=== PATIENT | female | born 1960 | race American Indian/Alaskan Native ===

== ENCOUNTER 2016-09-01 16:35 | Inpatient (IN) | payer MEDICAID, OTHER ==
--- NOTE | 2016-09-01 16:59 | EDM.PDOC ---
ED HPI SEIZURE COMPLAINT - General Chief Complaint: Neurological Problem Stated Complaint: BY AMBULANCE Time Seen by Provider: 09/01/16 16:59 Source of Information: Reports: Patient, EMS notes reviewed, Family, RN notes reviewed History Limitations: Reports: No limitations - History of Present Illness INITIAL COMMENTS - FREE TEXT/NARRATIVE: Arrives by ambulance with complaint of slurred speech and bilateral lower extremity weakness. Symptoms began yesterday when patient realized that her legs "weren't working right". She then had several hours where her hands were weak also, but they are back to normal. Denies fall or injury. Denies seizures. Denies fever or chills. Symptom Onset Date: 08/31/16 Event Occurred (Where): home Location: Reports: other (lower extremity weakness.) Severity: moderate Pre Event Symptom(s): Reports: no other symptoms Event Symptoms: Reports: no other symptoms - Related Data Allergies/ADRs: Allergies Allergy/AdvReac Type Severity Reaction Status Date / Time codeine Allergy Nausea Verified 08/03/15 18:40 naproxen [From Naprosyn] Allergy Hives Verified 08/03/15 18:40 Home Meds: Home Meds Phenytoin Sodium Extended [Dilantin] 600 mg PO DAILY 04/30/13 [History] ALPRAZolam [Xanax] 2 mg PO TID 05/22/13 [History] QUEtiapine [SEROquel] 400 mg PO BEDTIME 05/22/13 [History] Sertraline [Zoloft] 200 mg PO BEDTIME 05/22/13 [History] Formoterol/Mometasone [Dulera 100-50 MCG] 2 puff IH BID 06/14/13 [History] Gabapentin [Neurontin] 300 mg PO TID 06/14/13 [History] Zolpidem [Ambien] 5 mg PO BEDTIME PRN 06/14/13 [History] risperiDONE [Risperidone] 1 mg PO BEDTIME 06/14/13 [History] Albuterol [Ventolin HFA] 2 puff INH Q4H 09/16/13 [History] Past Medical History HEENT History: Reports: None Respiratory History: Reports: COPD - Past Surgical History Musculoskeletal Surgical History: Reports: Other (see below) Other Musculoskeletal Surgeries/Procedures:: right arm fracture Social & Family History - Family History Family Medical History: Noncontributory - Tobacco Use Smoking Status *Q: Never Smoker Years of Tobacco use: 1 Used Tobacco, but Quit: No Second Hand Smoke Exposure: Yes - Alcohol Use Days Per Week of Alcohol Use: 0 - Recreational Drug Use Recreational Drug Use: No Drug Use in Last 12 Months: Yes Recreational Drug Type: Reports: Marijuana/Hashish Recreational Drug Use Frequency: Rarely - Living Situation & Occupation Living situation: Reports: other (in [facility] house for giving vicodin to other) ED ROS GENERAL - Review of Systems Review Of Systems: ROS reveals no pertinent complaints other than HPI. - Physical Exam Exam: See Below Exam Limited By: No limitations General Appearance: alert, WD/WN, no apparent distress Eye Exam: bilateral eye: normal inspection Ears: normal external exam, normal canal, hearing grossly normal, normal TMs Nose: normal inspection, normal mucosa, no blood Throat/Mouth: Normal inspection, Normal lips, Normal teeth, Normal gums, Normal oropharynx, Normal voice, No airway compromise Head Exam: atraumatic, normocephalic Neck: supple, non-tender, full range of motion, lymphadenopathy (R) (upper lateral). No: carotid bruit, lymphadenopathy (L) Respiratory/Chest: no respiratory distress, lungs clear, normal breath sounds, no accessory muscle use, chest non-tender Cardiovascular: normal peripheral pulses, regular rate, rhythm, no edema, no gallop, no JVD, no murmur, no rub GI/Abdominal: normal bowel sounds, soft, non tender, no organomegaly, no distention, no abnormal bruit, no mass Neuro Exam (Abbreviated): alert, oriented, sensory/motor deficit (no sensory deficit. Bilateral lower extremity motor weakness. ), other (Cranial nerves II- XII intact, slightly slurred speech. ) Back Exam: normal inspection, full range of motion, NT Extremities: normal inspection, normal range of motion, non-tender, no pedal edema, normal capillary refill Psychiatric: normal affect, normal mood, other (denies suicidal thoughts or intent.) Skin Exam: Warm, Dry, Intact, Normal color, No rash Course - Vital Signs Last Recorded V/S: Last Vital Signs Temp 36.6 C 09/01/16 16:57 Pulse 72 09/01/16 16:57 Resp 16 09/01/16 16:57 BP 122/73 09/01/16 16:57 Pulse Ox 98 09/01/16 16:57 - Orders/Labs/Meds Orders: Active Orders 24 hr Category Date Time Status Peripheral IV Care [RC] . DIRECTED Care 09/01/16 17:11 Active DRUG SCREEN URINE BIORAD [URCHEM] Stat Lab 09/01/16 17:10 Uncollected UA W/MICROSCOPIC [URIN] Stat Lab 09/01/16 17:10 Uncollected Sodium Chloride 0.9% [Normal Saline] 1,000 ml Med 09/01/16 17:46 Active IV .BOLUS Sodium Chloride 0.9% [Saline Flush] Med 09/01/16 17:10 Active 10 ml FLUSH ASDIRECTED PRN Peripheral IV Insertion Adult [OM.PC] Stat Oth 09/01/16 17:10 Ordered Medication Orders Sodium Chloride (Normal Saline) 1,000 mls @ 999 mls/hr IV .BOLUS ONE Stop: 09/01/16 18:46 Sodium Chloride (Saline Flush) 10 ml FLUSH ASDIRECTED PRN PRN Reason: Keep Vein Open Labs: Laboratory Tests 09/01/16 09/01/16 Range/Units 17:30 17:30 WBC 6.4 (5.0-10.0) 10^3/uL RBC 3.71 L (4.2-5.4) 10^6/uL Hgb 11.8 L (12.0-16.0) g/dL Hct 35.0 L (37.0-47.0) % MCV 94.3 (80-100) fL MCH 31.8 (27.0-34.0) pg MCHC 33.7 (33.0-35.0) g/dL Plt Count 251 (150-450) 10^3/uL Neut % (Auto) 60.1 (42.2-75.2) % Lymph % (Auto) 29.4 (20.5-50.1) % [place] % (Auto) 8.3 H (2-8) % Eos % (Auto) 1.7 (1.0-3.0) % Baso % (Auto) 0.5 (0.0-1.0) % Sodium 137 (135-145) mmol/L Potassium 3.7 (3.6-5.0) mmol/L Chloride 105 (101-111) mmol/L Carbon Dioxide 23.0 (21.0-31.0) mmol/L Anion Gap 12.7 BUN 6 L (7-18) mg/dL Creatinine 0.7 (0.6-1.3) mg/dL Est Cr Clr Drug Dosing 92.68 mL/min Estimated GFR (MDRD) > 60 BUN/Creatinine Ratio 8.57 Glucose 118 H (74-105) mg/dL Calcium 8.5 (8.4-10.2) mg/dl Total Bilirubin 0.2 (0.2-1.0) mg/dL AST 37 (10-42) IU/L ALT 27 (10-60) IU/L Alkaline Phosphatase 134 H (42-121) IU/L Lactate Dehydrogenase 199 H (91-180) IU/L Creatine Kinase 505 H (26-174) IU/L Total Protein 6.6 L (6.7-8.2) g/dl Albumin 3.6 (3.2-5.5) g/dl Globulin 3.0 Albumin/Globulin Ratio 1.20 Phenytoin 32.5 H* (10-20) ug/dL Ethyl Alcohol < 5 mg/dL Meds: Medications Generic Name Dose Route Start Last Admin Trade Name Freq PRN Reason Stop Dose Admin Sodium Chloride 1,000 mls @ 999 mls/hr 09/01/16 17:46 Normal Saline IV 09/01/16 18:46 .BOLUS ONE Sodium Chloride 10 ml 09/01/16 17:10 Saline Flush FLUSH ASDIRECTED PRN Keep Vein Open Discontinued Medications Generic Name Dose Route Start Last Admin Trade Name Freq PRN Reason Stop Dose Admin Hydrocodone Bitart/Acetaminophen 1 tab 09/01/16 18:04 [place] 325-10 Mg PO 09/01/16 18:05 ONETIME ONE - Radiology Interpretation Free Text/Narrative:: Head CT: Per rad report shows no acute intracranial hemorrhage. Departure - Departure Time of Disposition: 18:26 (Dr. Solis) Disposition: DC/Tfer to Acute Hospital 02 Condition: fair Clinical Impression: Dilantin toxicity Qualifiers: Encounter type: initial encounter Injury intent: accidental or unintentional Qualified Code(s): T42.0X1A - Poisoning by hydantoin derivatives, accidental ( unintentional), initial encounter Forms: ED Department Discharge - My Orders Last 24 Hours: My Active Orders 09/01/16 17:10 DRUG SCREEN URINE BIORAD [URCHEM] Stat UA W/MICROSCOPIC [URIN] Stat Sodium Chloride 0.9% [Saline Flush] 10 ml FLUSH ASDIRECTED PRN Peripheral IV Insertion Adult [OM.PC] Stat 09/01/16 17:11 Peripheral IV Care [RC] . DIRECTED 09/01/16 17:46 Sodium Chloride 0.9% [Normal Saline] 1,000 ml IV .BOLUS - Assessment/Plan Last 24 Hours: My Active Orders 09/01/16 17:10 DRUG SCREEN URINE BIORAD [URCHEM] Stat UA W/MICROSCOPIC [URIN] Stat Sodium Chloride 0.9% [Saline Flush] 10 ml FLUSH ASDIRECTED PRN Peripheral IV Insertion Adult [OM.PC] Stat 09/01/16 17:11 Peripheral IV Care [RC] . DIRECTED 09/01/16 17:46 Sodium Chloride 0.9% [Normal Saline] 1,000 ml IV .BOLUS
[2016-09-01] MEDS ORDERED: Sodium Chloride 0.9% 10 ML Syringe FLUSH PRN (17:10)
[2016-09-01] MEDS ORDERED: Sodium Chloride 0.9% 1,000 ML IV ONE (17:46)
[2016-09-01] MEDS ORDERED: Acetaminophen/HYDROcodone 325-10 MG Tab PO ONE (18:04)
[2016-09-01 18:13] LABS: CHLORIDE,CL 105 mmol/L (101-111); SODIUM,NA 137 mmol/L (135-145)
--- NOTE | 2016-09-01 19:07 | PCM.HP ---
H&P History of Present Illness - General Date of Service: 09/01/16 Admit Problem/Dx: unsteadiness with elevated level of Dilantin ( 32.5) and Nausea Source of Information: Patient, Old records History Limitations: Reports: No limitations - History of Present Illness Initial Comments - Free Text/Narative: The patient is a 56-year-old female with history of COPD,History of seizures and she is on Dilantin. Arrives vis ambulance with complaint of slurred speech and bilateral lower extremity weakness. Symptoms began yesterday when patient realized that her legs "weren't working right". She then had several hours where her hands were weak also, but they are back to normal. Denies fall or injury. Denies seizures. Denies fever or chills. But she is unsteady and had Head CT in Ed today and no acute Intracranial Hemorrhage,. but her Dilantin level was elevated it was at 32.5, she did not receive activated charcoal in ER , because not sure when the last dose was taken. Onset of Symptoms: Reports: today Location: Reports: other (weakness in B/L Upper Extremity and B/L lower extremity) Associated Symptoms: Reports: other (Nusea and unsteadiness). Denies: chest pain, cough w sputum, shortness of breath Headache Pain Score (Numeric/FACES): 9 - Related Data Allergies/Adverse Reactions: Allergies Allergy/AdvReac Type Severity Reaction Status Date / Time codeine Allergy Nausea Verified 08/03/15 18:40 naproxen [From Naprosyn] Allergy Hives Verified 08/03/15 18:40 Home Medications: Home Meds Phenytoin Sodium Extended [Dilantin] 600 mg PO DAILY 04/30/13 [History] ALPRAZolam [Xanax] 2 mg PO TID 05/22/13 [History] QUEtiapine [SEROquel] 600 mg PO BEDTIME 05/22/13 [History] Sertraline [Zoloft] 200 mg PO DAILY 05/22/13 [History] Formoterol/Mometasone [Dulera 100-50 MCG] 2 puff IH BID 06/14/13 [History] Gabapentin [Neurontin] 600 mg PO TID 06/14/13 [History] Zolpidem [Ambien] 10 mg PO BEDTIME PRN 06/14/13 [History] risperiDONE [Risperidone] 1.5 mg PO BEDTIME 06/14/13 [History] Albuterol [Ventolin HFA] 2 puff INH Q4H PRN 09/16/13 [History] Ibuprofen 800 mg PO Q8H PRN 09/01/16 [History] Montelukast [Singulair] 4 mg PO DAILY 09/01/16 [History] Past Medical History HEENT History: Reports: None Respiratory History: Reports: COPD Neurological History: Reports: Seizure Psychiatric History: Reports: Anxiety, Depression - Past Surgical History Musculoskeletal Surgical History: Reports: Other (see below) Other Musculoskeletal Surgeries/Procedures:: right arm fracture Social & Family History - Family History Family Medical History: Noncontributory - Tobacco Use Smoking Status *Q: Never Smoker Years of Tobacco use: 1 Packs/Tins Daily: 0.1 Used Tobacco, but Quit: No Second Hand Smoke Exposure: Yes - Caffeine Use Caffeine Use: Reports: Coffee, Energy drinks, Soda, Tea - Alcohol Use Days Per Week of Alcohol Use: 0 - Recreational Drug Use Recreational Drug Use: No Drug Use in Last 12 Months: Yes Recreational Drug Type: Reports: Marijuana/Hashish Recreational Drug Use Frequency: Rarely - Living Situation & Occupation Living situation: Reports: other (in [facility] house for giving vicodin to other) H&P Review of Systems - Review of Systems: Review Of Systems: See Below General: Reports: weakness. Denies: fever, chills HEENT: Denies: headaches, sinus congestion, sore throat, vertigo Pulmonary: Denies: Shortness of Breath, Wheezing, Cough, Sputum Cardiovascular: Denies: chest pain, lightheadedness, claudication Gastrointestinal: Reports: Nausea. Denies: Abdominal pain, Anorexia, Difficulty swallowing, Distension, Flatus, Vomiting Genitourinary: Denies: dysuria, frequency, burning, urgency Skin: Denies: cyanosis, diaphoresis, bruising, pruritis, rash Psychiatric: Denies: confusion, anxiety Neurological: Reports: Numbness, Difficulty Walking, Gait Disturbance Hematologic/Lymphatic: Reports: no symptoms Immunologic: Reports: no symptoms Exam - Exam Exam: See Below - Vital Signs Vital Signs: Last Vital Signs Temp 36.6 C 09/01/16 16:57 Pulse 72 09/01/16 16:57 Resp 16 09/01/16 16:57 BP 122/73 09/01/16 16:57 Pulse Ox 98 09/01/16 16:57 Weight: 92.986 kg - Exam Quality Assessment: DVT prophylaxis. No: supplemental oxygen, urinary catheter General: alert, oriented, cooperative HEENT: Conjunctiva clear, Hearing intact, Pupils equal Neck: supple. No: lymphadenopathy, JVD Lungs: Clear to auscultation, Normal respiratory effort. No: Crackles, Wheezing Cardiovascular: regular rate, regular rhythm, normal S1, normal S2 Abdomen: normal bowel sounds, soft. No: guarding, rigidity, rebound (Female) Exam: Deferred Rectal (Female) Exam: Deferred Back Exam: normal inspection, full range of motion Extremities: normal inspection. No: calf tenderness, edema Skin: warm, dry, intact Neurological: cranial nerves intact Neuro Extensive - Mental Status: alert, oriented x3, normal mood/affect, normal cognition, memory intact Neuro Extensive - Motor, Sensory, Reflexes: CN II-XII intact, abnormal gait - Patient Data Result Diagrams: 09/01/16 17:30 09/01/16 17:30 *Q Meaningful Use (ADM) - VTE *Q VTE Criteria *Q: - Stroke *Q Stroke Criteria *Q: - AMI *Q AMI Criteria *Q: - Problem List (1) Nausea SNOMED Code(s): 762348923 ICD Code: R11.0 - NAUSEA Status: Acute Current Visit: Yes (2) Unsteadiness on feet SNOMED Code(s): 982962092 ICD Code: R26.81 - UNSTEADINESS ON FEET Status: Acute Current Visit: Yes (3) Dilantin toxicity SNOMED Code(s): 46298070 ICD Code: T42.0X1A - POISONING BY HYDANTOIN DERIVATIVES, ACCIDENTAL, INIT Status: Acute Current Visit: Yes Qualifiers: Encounter type: initial encounter Injury intent: accidental or unintentional Qualified Code(s): T42.0X1A - Poisoning by hydantoin derivatives , accidental (unintentional), initial encounter (4) Seizure disorder SNOMED Code(s): 506361736 ICD Code: G40.909 - EPILEPSY, UNSP, NOT INTRACTABLE, WITHOUT STATUS EPILEPTICUS Status: Chronic Current Visit: No Problem List Initiated/Reviewed/Updated: Yes Orders Last 24hrs: Medication Orders Sodium Chloride (Saline Flush) 10 ml FLUSH ASDIRECTED PRN PRN Reason: Keep Vein Open Last Admin: 09/01/16 18:47 Dose: 10 ml Assessment/Plan Comment:: Pt was admitted after she Arrived by ambulance with complaint of slurred speech and bilateral lower extremity weakness. Symptoms began yesterday when patient realized that her legs "weren't working right". She then had several hours where her hands were weak also, but they are back to normal. Denies fall or injury. Denies seizures. Denies fever or chills. In ED her Dilantin level was checked and it was elevated 32.5 ug/dl ( ref-03-15) 1. Dilantin Toxicity: The pt has history of Seizere Disorder and on Dilantin -She presented with slurred speech and B/L LE weakness -She did not receive any activated charcoalin ED and I talk to ED attending said it was too late, but I feel she should have atleast a dose in ED -Will continue IV fluids NS at 200 ml/Hr -Will check Dilantin level q2hrs and if the level keeps increasing then she may need dialysis and in that case may need a transfer to [facility] for D[facility] -Will hold her dilantin in hospital 2. Nausea : This is also likely from Dilantin toxicity -Will gine IV reglan and Zofran IV as needed 3. Unsteadiness and weakness: This is also related to Dialntin toxicity -Will continue IV fluids and check Dilantin level serially Q2-4 hrs, depending the repeat level 4. History of Seizure Disorder: She was on Dilantin and will hold in hospital and start once the level Normalizes 5. GI prophylaxis: Start Protonix 40 mg PO daily 6. DVT prophylaxis: Start Levonex 7. Code Status: Full Code
[2016-09-01] MEDS ORDERED: Docusate Sodium 100 MG Cap PO PRN (19:36)
[2016-09-01] MEDS: Ondansetron 4 MG/2 ML SDV IV PRN (20:00)
[2016-09-01] MEDS ORDERED: Albuterol 6.7 GM Inhaler INH PRN (20:00)
[2016-09-01] MEDS ORDERED: Sertraline 50 MG Tab PO SCH (21:00)
[2016-09-01] MEDS: Acetaminophen 325 MG Tab PO PRN (21:43)
[2016-09-01] MEDS: Formoterol/Mometasone 100-5 MCG 8.8 GM Inhaler IH SCH (21:43)
[2016-09-01] MEDS: ALPRAZolam 0.5 MG Tab PO SCH (21:46)
[2016-09-01] MEDS: risperiDONE 1 MG Tab PO SCH (21:46)
[2016-09-01] MEDS: QUEtiapine 100 MG Tab PO SCH (21:47)
[2016-09-01] MEDS: Metoclopramide 10 MG/2 ML SDV IVPUSH PRN (21:55)
[2016-09-01] MEDS: Gabapentin 300 MG Cap PO SCH (22:19)
[2016-09-01] MEDS: Zolpidem 5 MG Tab PO PRN (22:19)
[2016-09-01] MEDS: Benzocaine/Cetylpyridinium/Menthol Lozenge MUCMEM PRN (23:54)
[2016-09-02] MEDS ORDERED: Acetaminophen/oxyCODONE 325-5 MG Tab PO ONE
[2016-09-02] MEDS ORDERED: Ibuprofen 400 MG Tab PO ONE (00:10)
[2016-09-02] MEDS: Sodium Chloride 0.9% 1,000 ML IV SCH ×4 (00:14→18:40)
[2016-09-02] MEDS: Benzocaine/Cetylpyridinium/Menthol Lozenge MUCMEM PRN ×2 (03:13→10:27)
[2016-09-02] MEDS: Acetaminophen 325 MG Tab PO PRN ×3 (03:14→20:22)
[2016-09-02] MEDS: Pantoprazole 40 MG Tab.CR PO SCH (06:01)
[2016-09-02] MEDS: Ondansetron 4 MG/2 ML SDV IV PRN ×2 (06:03→17:31)
[2016-09-02 07:37] LABS: CHLORIDE,CL 109 mmol/L (101-111); SODIUM,NA 139 mmol/L (135-145)
[2016-09-02] MEDS ORDERED: Calcium Gluconate 10% 1 GM/10 ML SDV IVPUSH ONE (07:55)
[2016-09-02] MEDS: Metoclopramide 10 MG/2 ML SDV IVPUSH PRN ×3 (08:51→20:46)
[2016-09-02] MEDS: Formoterol/Mometasone 100-5 MCG 8.8 GM Inhaler IH SCH ×2 (10:27→20:52)
[2016-09-02] MEDS: Gabapentin 300 MG Cap PO SCH ×3 (10:28→20:51)
[2016-09-02] MEDS: Sertraline 50 MG Tab PO SCH (10:29)
[2016-09-02] MEDS: ALPRAZolam 0.5 MG Tab PO SCH ×3 (10:29→20:52)
[2016-09-02] MEDS: Enoxaparin 40 MG/0.4 ML Syringe SUBCUT SCH (10:30)
[2016-09-02] MEDS ORDERED: Albuterol/Ipratropium 3.0-0.5 MG/3 ML Neb Soln NEB PRN (10:32)
[2016-09-02] MEDS ORDERED: Furosemide 20 MG/2 ML VIAL IVPUSH ONE ×2 (10:33→16:04)
--- NOTE | 2016-09-02 11:17 | PCM.PN ---
- General Info Date of Service: 09/02/16 Admission Dx/Problem (Free Text): Pt was admitted with : unsteadiness with elevated level of Dilantin ( 32.5), B/ L Leg weakness and Nausea Functional Status: Reports: pain controlled, tolerating diet, urinating - Review of Systems General: Reports: Weakness, Appetite (good). Denies: Chills HEENT: Reports: headaches. Denies: ear pain, eye pain, sinus congestion, sore throat Pulmonary: Reports: cough, wheezing. Denies: sputum Cardiovascular: Denies: Chest Pain, Dyspnea on Exertion, Lightheadedness Gastrointestinal: Reports: Nausea, Vomiting. Denies: Abdominal pain, Diarrhea Genitourinary: Denies: dysuria, frequency, burning, pain, urgency Musculoskeletal: Denies: shoulder pain, hand pain, back pain, foot pain Skin: Denies: jaundice, diaphoresis, bruising, pruritis, rash Neurological: Reports: Numbness, Difficulty Walking, Weakness Psychiatric: Denies: confusion, anxiety - Patient Data Vitals - most recent: Last Vital Signs Temp 36.3 C 09/02/16 07:00 Pulse 71 09/02/16 07:00 Resp 20 09/02/16 07:00 BP 92/54 L 09/02/16 07:00 Pulse Ox 94 L 09/02/16 07:00 Weight - most recent: 92.986 kg I&O - last 24 hours: Intake & Output 09/01/16 09/02/16 09/02/16 22:59 06:59 14:59 Intake Total 2000 Output Total 600 Balance 2000 -600 Lab Results last 24 hrs: Laboratory Results - last 24 hr 09/01/16 09/02/16 09/02/16 Range/Units 23:00 03:00 06:20 Sodium (135-145) mmol/L Potassium (3.6-5.0) mmol/L Chloride (101-111) mmol/L Carbon Dioxide (21.0-31.0) mmol/L Anion Gap BUN (7-18) mg/dL Creatinine (0.6-1.3) mg/dL Est Cr Clr Drug Dosing mL/min Estimated GFR (MDRD) Glucose (74-105) mg/dL Calcium (8.4-10.2) mg/dl Urine Color (YELLOW) Urine Appearance (CLEAR) Urine pH (5.0-9.0) Ur Specific [place] (1.005-1.030) Urine Protein (NEGATIVE) Urine Glucose (UA) (NEGATIVE) Urine Ketones (NEGATIVE) Urine Occult Blood (NEGATIVE) Urine Nitrite (NEGATIVE) Urine Bilirubin (NEGATIVE) Urine Urobilinogen (0.2-1.0) mg/dL Ur Leukocyte Esterase (NEGATIVE) Urine RBC /HPF Urine WBC (0-5/HPF) /HPF Ur Epithelial Cells /HPF Urine Bacteria (0-FEW/HPF) /HPF Urine Mucus /LPF Urine Opiates Screen Negative (NEGATIVE) Ur Oxycodone Screen Negative (NEGATIVE) Urine Methadone Screen Negative (NEGATIVE) Ur Barbiturates Screen Positive H (NEGATIVE) Phenytoin 28.7 H* 28.8 H* (10-20) ug/dL U Tricyclic Antidepress Negative (NEGATIVE) Ur Phencyclidine Scrn Negative (NEGATIVE) Ur Amphetamine Screen Negative (NEGATIVE) U Methamphetamines Scrn Negative (NEGATIVE) Urine MDMA Screen Negative (NEGATIVE) U Benzodiazepines Scrn Positive H (NEGATIVE) Urine Cocaine Screen Negative (NEGATIVE) U Marijuana (THC) Screen Negative (NEGATIVE) 09/02/16 09/02/16 09/02/16 Range/Units 06:20 07:05 07:05 Sodium 139 (135-145) mmol/L Potassium 3.7 (3.6-5.0) mmol/L Chloride 109 (101-111) mmol/L Carbon Dioxide 24.0 (21.0-31.0) mmol/L Anion Gap 9.7 BUN 8 (7-18) mg/dL Creatinine 0.7 (0.6-1.3) mg/dL Est Cr Clr Drug Dosing 92.68 mL/min Estimated GFR (MDRD) > 60 Glucose 92 (74-105) mg/dL Calcium 7.5 L (8.4-10.2) mg/dl Urine Color Yellow (YELLOW) Urine Appearance Slightly cloudy (CLEAR) Urine pH 7.0 (5.0-9.0) Ur Specific [place] 1.020 (1.005-1.030) Urine Protein Negative (NEGATIVE) Urine Glucose (UA) Negative (NEGATIVE) Urine Ketones Negative (NEGATIVE) Urine Occult Blood Negative (NEGATIVE) Urine Nitrite Negative (NEGATIVE) Urine Bilirubin Negative (NEGATIVE) Urine Urobilinogen 0.2 (0.2-1.0) mg/dL Ur Leukocyte Esterase Negative (NEGATIVE) Urine RBC 0-5 /HPF Urine WBC 0-5 (0-5/HPF) /HPF Ur Epithelial Cells Moderate H /HPF Urine Bacteria Few (0-FEW/HPF) /HPF Urine Mucus Few H /LPF Urine Opiates Screen (NEGATIVE) Ur Oxycodone Screen (NEGATIVE) Urine Methadone Screen (NEGATIVE) Ur Barbiturates Screen (NEGATIVE) Phenytoin 25.5 H* (10-20) ug/dL U Tricyclic Antidepress (NEGATIVE) Ur Phencyclidine Scrn (NEGATIVE) Ur Amphetamine Screen (NEGATIVE) U Methamphetamines Scrn (NEGATIVE) Urine MDMA Screen (NEGATIVE) U Benzodiazepines Scrn (NEGATIVE) Urine Cocaine Screen (NEGATIVE) U Marijuana (THC) Screen (NEGATIVE) Med Orders - Current: Current Medications Acetaminophen (Tylenol) 650 mg PO Q4H PRN PRN Reason: Pain (mild 1-3 )/fever Last Admin: 09/02/16 10:26 Dose: 650 mg Albuterol (Proventil Hfa) 0 gm INH Q4H PRN PRN Reason: WHEEZING / SOB Albuterol/Ipratropium (Duoneb 3.0-0.5 Mg/3 Ml) 3 ml NEB Q4HRRT PRN PRN Reason: Wheezing Alprazolam (Xanax) 2 mg PO TID [facility] Last Admin: 09/02/16 10:29 Dose: 2 mg Benzocaine/Menthol (Cepacol Sore Throat) 1 lozenge MUCMEM Q3H PRN PRN Reason: Cough Last Admin: 09/02/16 10:27 Dose: 1 lozenge Docusate Sodium (Colace) 100 mg PO DAILY PRN PRN Reason: Constipation Enoxaparin Sodium (Lovenox) 40 mg SUBCUT DAILY [facility] Last Admin: 09/02/16 10:30 Dose: 40 mg Gabapentin (Neurontin) 600 mg PO TID [facility] Last Admin: 09/02/16 10:28 Dose: 600 mg Sodium Chloride (Normal Saline) 1,000 mls @ 200 mls/hr IV ASDIRECTED [facility] Last Admin: 09/02/16 05:29 Dose: 200 mls/hr Metoclopramide HCl (Reglan) 5 mg IVPUSH Q6H PRN PRN Reason: Nausea Last Admin: 09/02/16 08:51 Dose: 5 mg Mometasone Furoate/Formoterol Fumar (Dulera 100-5 Mcg) 2 puff IH BID [facility] Last Admin: 09/02/16 10:27 Dose: 2 puff Montelukast [ (Singulair] 4mg) 4 mg PO DAILY [facility] Ondansetron HCl (Zofran) 4 mg IV Q4H PRN PRN Reason: Nausea/Vomiting Last Admin: 09/02/16 06:03 Dose: 4 mg Pantoprazole Sodium (Protonix) 40 mg PO ACBREAKFAST [facility] Last Admin: 09/02/16 06:01 Dose: 40 mg Quetiapine Fumarate (Seroquel) 400 mg PO BEDTIME [facility] Last Admin: 09/01/16 21:47 Dose: Not Given Risperidone (Risperidal) 1 mg PO BEDTIME [facility] Last Admin: 09/01/16 21:46 Dose: 1 mg Sertraline HCl (Zoloft) 200 mg PO DAILY [facility] Last Admin: 09/02/16 10:29 Dose: 200 mg Sodium Chloride (Saline Flush) 10 ml FLUSH ASDIRECTED PRN PRN Reason: Keep Vein Open Last Admin: 09/01/16 18:47 Dose: 10 ml Zolpidem Tartrate (Ambien) 10 mg PO BEDTIME PRN PRN Reason: Insomnia Last Admin: 09/01/16 22:19 Dose: 10 mg Discontinued Medications Hydrocodone Bitart/Acetaminophen ([place] 325-10 Mg) 1 tab PO ONETIME ONE Stop: 09/01/16 18:05 Last Admin: 09/01/16 18:46 Dose: 1 tab Calcium Gluconate (Calcium Gluconate) 1 gm IVPUSH ONETIME ONE Stop: 09/02/16 07:56 Last Admin: 09/02/16 08:51 Dose: 1 gm Furosemide (Lasix) 20 mg IVPUSH ONETIME ONE Stop: 09/02/16 10:34 Sodium Chloride (Normal Saline) 1,000 mls @ 999 mls/hr IV .BOLUS ONE Stop: 09/01/16 18:46 Last Infusion: 09/02/16 00:14 Dose: Infused Ibuprofen (Motrin) 400 mg PO ONETIME ONE Stop: 09/02/16 00:11 Last Admin: 09/02/16 00:10 Dose: 400 mg Oxycodone/Acetaminophen (Percocet 325-5 Mg) 1 tab PO ONETIME ONE Stop: 09/02/16 00:01 Last Admin: 09/02/16 01:20 Dose: Not Given Sertraline HCl (Zoloft) 200 mg PO BEDTIME [facility] Last Admin: 09/01/16 21:47 Dose: Not Given - Exam Quality Assessment: DVT prophylaxis. No: supplemental oxygen, urine catheter General: alert, oriented, cooperative, no acute distress HEENT: Pupils equal, Mucous membr. moist/pink Neck: supple, no thyromegaly. No: lymphadenopathy Lungs: Clear to auscultation, Normal respiratory effort, Wheezing. No: Crackles Cardiovascular: Regular Rate, Regular Rhythm, Murmurs Abdomen: bowel sounds present, soft, no tenderness, no distension (Female) Exam: Deferred Back Exam: normal inspection, full range of motion Extremities: no edema, no clubbing, no calf tenderness Skin: warm, dry, intact Neurological: no new focal deficit Psy/Mental Status: alert, normal affect, normal mood - Problem List & Annotations (1) Nausea SNOMED Code(s): 331750078 Code(s): R11.0 - NAUSEA Status: Acute Current Visit: Yes (2) Unsteadiness on feet SNOMED Code(s): 509294105 Code(s): R26.81 - UNSTEADINESS ON FEET Status: Acute Current Visit: Yes (3) Dilantin toxicity SNOMED Code(s): 20252021 Code(s): T42.0X1A - POISONING BY HYDANTOIN DERIVATIVES, ACCIDENTAL, INIT Status: Acute Current Visit: Yes Qualifiers: Encounter type: initial encounter Injury intent: accidental or unintentional Qualified Code(s): T42.0X1A - Poisoning by hydantoin derivatives , accidental (unintentional), initial encounter (4) Seizure disorder SNOMED Code(s): 671867559 Code(s): G40.909 - EPILEPSY, UNSP, NOT INTRACTABLE, WITHOUT STATUS EPILEPTICUS Status: Chronic Current Visit: No - Problem List Review Problem List Initiated/Reviewed/Updated: Yes - My Orders Last 24 Hours: My Active Orders 09/01/16 19:42 Metoclopramide [Reglan] 5 mg IVPUSH Q6H PRN 09/01/16 19:43 Ondansetron [Zofran] 4 mg IV Q4H PRN 09/01/16 19:45 Sodium Chloride 0.9% [Normal Saline] 1,000 ml IV ASDIRECTED 09/01/16 19:47 Zolpidem [Ambien] 10 mg PO BEDTIME PRN 09/01/16 20:00 Albuterol [Proventil HFA] 0 gm INH Q4H PRN 09/01/16 21:00 ALPRAZolam [Xanax] 2 mg PO TID Gabapentin [Neurontin] 600 mg PO TID Mometasone/Formoterol [Dulera 100-5 MCG] 2 puff IH BID QUEtiapine [SEROquel] 400 mg PO BEDTIME risperiDONE [RisperiDAL] 1 mg PO BEDTIME 09/01/16 23:48 Benzocaine/Cetylpyrd/Menthol [Cepacol Sore Throat] 1 lozenge MUCMEM Q3H PRN 09/02/16 06:00 Pantoprazole [ProTONIX] 40 mg PO ACBREAKFAST 09/02/16 09:00 Montelukast [Singulair] 4 mg PO DAILY Sertraline [Zoloft] 200 mg PO DAILY 09/02/16 10:30 PT Evaluation and Treatment [CONS] Routine 09/02/16 10:32 RT Aerosol Therapy [RC] ASDIRECTED Albuterol/Ipratropium [DuoNeb 3.0-0.5 MG/3 ML] 3 ml NEB Q4HRRT PRN 09/02/16 10:55 DILANTIN,PHENYTOIN [CHEM] Q4H 09/02/16 15:00 DILANTIN,PHENYTOIN [CHEM] Q4H - Plan Plan:: Pt was admitted after she Arrived by ambulance with complaint of slurred speech and bilateral lower extremity weakness. Symptoms began yesterday when patient realized that her legs "weren't working right". She then had several hours where her hands were weak also, but they are back to normal. Denies fall or injury. Denies seizures. Denies fever or chills. In ED her Dilantin level was checked and it was elevated 32.5 ug/dl ( ref-10-20) 1. Dilantin Toxicity: The pt has history of Seizere Disorder and on Dilantin -She presented with slurred speech and B/L LE weakness -She did not receive any activated charcoalin ED, but I felt she should have received atleast a dose in ED -Will continue IV fluids NS at 200 ml/Hr -Will check Dilantin level q 4 hrs and if the level keeps increasing then she may need dialysis and in that case may need a transfer to [facility] for Dialysis, her Dilantin is coming down and she is improving, weakness is better and strength is coming back -Will hold her regular schedule dose of dilantin in hospital 2. Nausea : This is also likely from Dilantin toxicity -Will continue IV reglan and Zofran IV as needed 3. Unsteadiness and weakness: This is also related to Dialntin toxicity -Will continue IV fluids and check Dilantin level serially Q4-6 hrs -Will get PT evaluation in AM 4. History of Seizure Disorder: She was on Dilantin and will hold in hospital and start once the level Normalizes 5. GI prophylaxis: Start Protonix 40 mg PO daily 6. Wheezing: The etiology not clear, will start her on Duoneb PRN and give a dose of IV Lasix ( 20 mg) 7. Hypocalcemia: Will give calcium gluconate 1 gm IV X1 dose 8. DVT prophylaxis: Start Levonex 9. Code Status: Full Code
[2016-09-02] MEDS: risperiDONE 1 MG Tab PO SCH (20:51)
[2016-09-02] MEDS: QUEtiapine 100 MG Tab PO SCH (20:51)
[2016-09-03] MEDS: Ondansetron 4 MG/2 ML SDV IV PRN ×2 (01:42→17:21)
[2016-09-03] MEDS: Sodium Chloride 0.9% 1,000 ML IV SCH ×3 (05:00→10:25)
[2016-09-03] MEDS: Pantoprazole 40 MG Tab.CR PO SCH (05:04)
[2016-09-03 07:00] LABS: CHLORIDE,CL 111 mmol/L (101-111); SODIUM,NA 140 mmol/L (135-145)
[2016-09-03] MEDS: Metoclopramide 10 MG/2 ML SDV IVPUSH PRN ×2 (07:55→20:20)
[2016-09-03] MEDS: Acetaminophen 325 MG Tab PO PRN ×2 (07:56→17:20)
[2016-09-03] MEDS: ALPRAZolam 0.5 MG Tab PO SCH ×3 (08:01→20:03)
[2016-09-03] MEDS: Sertraline 50 MG Tab PO SCH (08:01)
[2016-09-03] MEDS: Gabapentin 300 MG Cap PO SCH ×3 (08:01→20:04)
[2016-09-03] MEDS: Enoxaparin 40 MG/0.4 ML Syringe SUBCUT SCH (08:02)
[2016-09-03] MEDS: Formoterol/Mometasone 100-5 MCG 8.8 GM Inhaler IH SCH ×2 (08:03→20:06)
[2016-09-03] MEDS ORDERED: Potassium Chloride 10 MEQ Tab.ER PO ONE (10:00)
--- NOTE | 2016-09-03 10:36 | PCM.PN ---
- General Info Date of Service: 09/03/16 Admission Dx/Problem (Free Text): Pt was admitted with : unsteadiness with elevated level of Dilantin ( 32.5), B/ L Leg weakness and Nausea Subjective Update: patient states that she is still feeling the same however her weakness improved. She is still complaining of generalized headache, body aches, cough, and nausea. she admitted having left shoulder pain with arm motion also right knee pain with leg motion. She stated that the pain is from her fall. Patient admitted that she has been forgetting things recently. She does not know why. She denies change in her medications. However she gave inconsistent history and change her story where after a bout norcatic medications. She stated that she was recently prescribed Percocet and she finished them one week ago. she stated that she think she took extra blunting because she forgets. She denies being suicidal or homicidal or trying to hurt herself. Lost time she had seizure was lost April. She missed her appointment was the neurologist this month. Daughter lives with patient. she stated that her daughter can help her managing her medications intake. Since yesterday patient denies fever, chills, vomiting, chest pain, upper respiratory symptoms, shortness breath, abdominal pain, unilateral weakness, numbness, tingling, or any other symptoms. - Patient Data Vitals - most recent: Last Vital Signs Temp 36.1 C 09/03/16 07:39 Pulse 77 09/03/16 07:39 Resp 20 09/03/16 07:39 BP 98/60 09/03/16 07:39 Pulse Ox 99 09/03/16 07:39 Weight - most recent: 92.986 kg I&O - last 24 hours: Intake & Output 09/02/16 09/03/16 09/03/16 22:59 06:59 14:59 Intake Total 3200 2682 100 Output Total 1000 1950 Balance 2200 732 100 Lab Results last 24 hrs: Laboratory Results - last 24 hr 09/02/16 09/02/16 09/03/16 Range/Units 10:55 15:13 06:20 Sodium 140 (135-145) mmol/L Potassium 3.4 L (3.6-5.0) mmol/L Chloride 111 (101-111) mmol/L Carbon Dioxide 21.0 (21.0-31.0) mmol/L Anion Gap 11.4 BUN 6 L (7-18) mg/dL Creatinine 0.7 (0.6-1.3) mg/dL Est Cr Clr Drug Dosing 92.68 mL/min Estimated GFR (MDRD) > 60 Glucose 111 H (74-105) mg/dL Calcium 7.8 L (8.4-10.2) mg/dl Phenytoin 27.8 H* 25.0 H* (10-20) ug/dL 09/03/16 Range/Units 06:20 Sodium (135-145) mmol/L Potassium (3.6-5.0) mmol/L Chloride (101-111) mmol/L Carbon Dioxide (21.0-31.0) mmol/L Anion Gap BUN (7-18) mg/dL Creatinine (0.6-1.3) mg/dL Est Cr Clr Drug Dosing mL/min Estimated GFR (MDRD) Glucose (74-105) mg/dL Calcium (8.4-10.2) mg/dl Phenytoin 22.2 H* (10-20) ug/dL Med Orders - Current: Current Medications Acetaminophen (Tylenol) 650 mg PO Q4H PRN PRN Reason: Pain (mild 1-3 )/fever Last Admin: 09/03/16 07:56 Dose: 650 mg Albuterol (Proventil Hfa) 0 gm INH Q4H PRN PRN Reason: WHEEZING / SOB Albuterol/Ipratropium (Duoneb 3.0-0.5 Mg/3 Ml) 3 ml NEB Q6HRRT [facility] Alprazolam (Xanax) 2 mg PO TID [facility] Last Admin: 09/03/16 08:01 Dose: 2 mg Benzocaine/Menthol (Cepacol Sore Throat) 1 lozenge MUCMEM Q3H PRN PRN Reason: Cough Last Admin: 09/02/16 10:27 Dose: 1 lozenge Docusate Sodium (Colace) 100 mg PO DAILY PRN PRN Reason: Constipation Enoxaparin Sodium (Lovenox) 40 mg SUBCUT DAILY [facility] Last Admin: 09/03/16 08:02 Dose: 40 mg Gabapentin (Neurontin) 600 mg PO TID [facility] Last Admin: 09/03/16 08:01 Dose: 600 mg Metoclopramide HCl (Reglan) 5 mg IVPUSH Q6H PRN PRN Reason: Nausea Last Admin: 09/03/16 07:55 Dose: 5 mg Mometasone Furoate/Formoterol Fumar (Dulera 100-5 Mcg) 2 puff IH BID [facility] Last Admin: 09/03/16 08:03 Dose: 2 puff Montelukast [ (Singulair] 4mg) 4 mg PO DAILY [facility] Ondansetron HCl (Zofran) 4 mg IV Q4H PRN PRN Reason: Nausea/Vomiting Last Admin: 09/03/16 01:42 Dose: 4 mg Pantoprazole Sodium (Protonix) 40 mg PO ACBREAKFAST [facility] Last Admin: 09/03/16 05:04 Dose: 40 mg Quetiapine Fumarate (Seroquel) 400 mg PO BEDTIME [facility] Last Admin: 09/02/16 20:51 Dose: 400 mg Risperidone (Risperidal) 1 mg PO BEDTIME [facility] Last Admin: 09/02/16 20:51 Dose: 1 mg Sertraline HCl (Zoloft) 200 mg PO DAILY [facility] Last Admin: 09/03/16 08:01 Dose: 200 mg Sodium Chloride (Saline Flush) 10 ml FLUSH ASDIRECTED PRN PRN Reason: Keep Vein Open Last Admin: 09/01/16 18:47 Dose: 10 ml Zolpidem Tartrate (Ambien) 10 mg PO BEDTIME PRN PRN Reason: Insomnia Last Admin: 09/01/16 22:19 Dose: 10 mg Discontinued Medications Hydrocodone Bitart/Acetaminophen ([place] 325-10 Mg) 1 tab PO ONETIME ONE Stop: 09/01/16 18:05 Last Admin: 09/01/16 18:46 Dose: 1 tab Albuterol/Ipratropium (Duoneb 3.0-0.5 Mg/3 Ml) 3 ml NEB Q4HRRT PRN PRN Reason: Wheezing Last Admin: 09/02/16 18:22 Dose: 3 ml Calcium Gluconate (Calcium Gluconate) 1 gm IVPUSH ONETIME ONE Stop: 09/02/16 07:56 Last Admin: 09/02/16 08:51 Dose: 1 gm Furosemide (Lasix) 20 mg IVPUSH ONETIME ONE Stop: 09/02/16 10:34 Last Admin: 09/02/16 11:34 Dose: 20 mg Furosemide (Lasix) 20 mg IVPUSH NOW ONE Stop: 09/02/16 16:05 Last Admin: 09/02/16 17:31 Dose: 20 mg Sodium Chloride (Normal Saline) 1,000 mls @ 999 mls/hr IV .BOLUS ONE Stop: 09/01/16 18:46 Last Infusion: 09/02/16 00:14 Dose: Infused Sodium Chloride (Normal Saline) 1,000 mls @ 200 mls/hr IV ASDIRECTED [facility] Last Admin: 09/03/16 10:25 Dose: 200 mls/hr Ibuprofen (Motrin) 400 mg PO ONETIME ONE Stop: 09/02/16 00:11 Last Admin: 09/02/16 00:10 Dose: 400 mg Oxycodone/Acetaminophen (Percocet 325-5 Mg) 1 tab PO ONETIME ONE Stop: 09/02/16 00:01 Last Admin: 09/02/16 01:20 Dose: Not Given Potassium Chloride (Klor-Con 10) 20 meq PO ONETIME ONE Stop: 09/03/16 10:01 Last Admin: 09/03/16 10:22 Dose: 20 meq Sertraline HCl (Zoloft) 200 mg PO BEDTIME [facility] Last Admin: 09/01/16 21:47 Dose: Not Given - Exam General: alert, oriented, cooperative, mild distress. No: no acute distress, sedated, lethargic, obtunded HEENT: Pupils equal, Pupils reactive, EOMI, Mucous membr. moist/pink Neck: supple, trachea midline, no JVD Lungs: Normal respiratory effort, Decreased breath sounds (with fair air exchange), Wheezing (sporadic and faint). No: Crackles, Rales, Rhonchi, Rub, Stridor Cardiovascular: Regular Rate, Regular Rhythm, No Murmurs Abdomen: bowel sounds present, soft, no tenderness, no distension (Female) Exam: Deferred Back Exam: normal inspection Extremities: no edema, normal pulses, no tenderness/swelling, no clubbing, no cyanosis, no calf tenderness, other (Limited range of motion in left shoulder and to pain. Right knee mild bruise with small tenderness. However no effusion or laxity are appreciated) Skin: warm, dry, intact Neurological: no new focal deficit, normal speech, normal tone, strength equal bilateral, reflexes equal bilateral, sensation intact, cranial nerves intact Psy/Mental Status: alert, normal affect, normal mood. No: anxious, depressed, agitated, suicidal ideation, homicidal ideation, hallucinations - Problem List Review Problem List Initiated/Reviewed/Updated: Yes - My Orders Last 24 Hours: My Active Orders 09/03/16 10:26 Knee 3V Lt [CR] Routine 09/03/16 10:27 Shoulder Comp Lt [CR] Routine 09/03/16 13:00 Albuterol/Ipratropium [DuoNeb 3.0-0.5 MG/3 ML] 3 ml NEB Q6HRRT 09/04/16 05:11 BASIC METABOLIC PANEL,BMP [CHEM] AM CBC WITH AUTO DIFF [HEME] AM CREATINE KINASE,CK [CHEM] AM DILANTIN,PHENYTOIN [CHEM] AM - Plan Plan:: Pt was admitted after she Arrived by ambulance with complaint of slurred speech and bilateral lower extremity weakness. Symptoms began yesterday when patient realized that her legs "weren't working right". She then had several hours where her hands were weak also, but they are back to normal. Denies fall or injury. Denies seizures. Denies fever or chills. In ED her Dilantin level was checked and it was elevated 32.5 ug/dl ( ref-03-15) Dilantin Toxicity: The pt has history of Seizere Disorder and on Dilantin -blunted on admission was 32.5 and this morning is 22.2 -She presented with slurred speech and B/L LE weakness. speech is normal today -She did not receive any activated charcoalin ED -stop IV fluids -recheck blunting in the morning -Will hold her regular schedule dose of dilantin in hospital -we'll have physical therapy evaluate and treat Nausea : This is also likely from Dilantin toxicity -Will continue IV reglan and Zofran IV as needed Headache: Possibly from the Dilantin toxicity -Tylenol p.r.n. -I will give ibuprofen 600 mg every 8 hours p.r.n. Total of 3 doses memory loss She remembered 3 objects I counseled her about seeing neuro clinical psychology teacher in [place] and seen her neurologist as soon as possible she was advised to have someone that she trusts to arrange giving her medications. she was advised to get her medication packaged from pharmacy weakness: This is also related to Dialntin toxicity PT evaluation and treatment Wheezing and cough: Possible from her COPD. We'll give DuraNeb every 6 hours scheduled and expectorants as needed History of Seizure Disorder: She was on Dilantin and will hold in hospital and start once the level Normalizes Fall at home Possibly from the dilantin toxicity management as above Left shoulder pain From fall I ordered x-ray of left shoulder Right knee pain, from fall I ordered right knee x-ray Hypocalcemia: she received calcium gluconate 1 gm IV X1 dose yesterday Hypokalemia Replace orally elevated creatine kinase, possibly from fall Kidney function is normal She received IV fluids infusion Recheck CK in the morning GI prophylaxis: Start Protonix 40 mg PO daily DVT prophylaxis: Start Levonex Code Status: Full Code 38 minutes were spent with patient more than half of it was counseling about her memory loss, medications side effects, differential diagnoses, and safety at home
--- NOTE | 2016-09-03 11:30 | CR ---
CLINICAL HISTORY: 56-year-old female with limited range of motion and pain since a fall (2 days ago) . INTERPRETATION: Hill-Sachs notch like deformity flattening the lateral aspect of the humeral head bu t no current signs of acute fracture or dislocation. Subtle elevation humeral head relative to the glenoid of the scapula suggest possibility of some rot ator cuff impingement. No juxta-articular rotator cuff tendon calcifications. No pathologic skeletal lesion or acromioclavicular separation. Left lung apex is clear. CONCLUSION: Subtle abnormalities left shoulder consistent with old trauma. Possible rotator cuff imp ingement.
--- NOTE | 2016-09-03 11:52 | CR ---
CLINICAL HISTORY: 56-year-old female with right knee pain (fell 2 days ago). INTERPRETATION: Large bony exostosis extending proximally from the medial metaphysis, distal right f emur. Hypertrophic arthritic spurs involving the intercondylar tibial spines and margins of the tibial susan teau. No joint effusion, pathologic skeletal lesion, right knee fracture, dislocation or radiopaque loose joint body. CONCLUSION: No fractures.
[2016-09-03] MEDS: Ibuprofen 600 MG Tab PO PRN ×2 (11:56→20:04)
[2016-09-03] MEDS: Albuterol/Ipratropium 3.0-0.5 MG/3 ML Neb Soln NEB SCH ×2 (13:28→18:29)
[2016-09-03] MEDS: QUEtiapine 100 MG Tab PO SCH (20:04)
[2016-09-03] MEDS: Zolpidem 5 MG Tab PO PRN (20:06)
[2016-09-03] MEDS: risperiDONE 1 MG Tab PO SCH (20:06)
[2016-09-04] MEDS: Acetaminophen 325 MG Tab PO PRN ×5 (00:47→18:13)
[2016-09-04] MEDS: Ondansetron 4 MG/2 ML SDV IV PRN ×2 (00:47→10:23)
[2016-09-04] MEDS: Albuterol/Ipratropium 3.0-0.5 MG/3 ML Neb Soln NEB SCH ×4 (01:17→18:12)
[2016-09-04] MEDS: Benzocaine/Cetylpyridinium/Menthol Lozenge MUCMEM PRN ×2 (03:01→10:22)
[2016-09-04] MEDS: Ibuprofen 600 MG Tab PO PRN (04:15)
[2016-09-04] MEDS: Metoclopramide 10 MG/2 ML SDV IVPUSH PRN (05:55)
[2016-09-04] MEDS: Pantoprazole 40 MG Tab.CR PO SCH (05:56)
[2016-09-04 06:53] LABS: CHLORIDE,CL 110 mmol/L (101-111); SODIUM,NA 140 mmol/L (135-145)
[2016-09-04] MEDS: Formoterol/Mometasone 100-5 MCG 8.8 GM Inhaler IH SCH ×2 (10:17→20:33)
[2016-09-04] MEDS: Gabapentin 300 MG Cap PO SCH ×3 (10:19→20:35)
[2016-09-04] MEDS: ALPRAZolam 0.5 MG Tab PO SCH ×3 (10:19→20:36)
[2016-09-04] MEDS: Sertraline 50 MG Tab PO SCH (10:22)
[2016-09-04] MEDS: Enoxaparin 40 MG/0.4 ML Syringe SUBCUT SCH (10:23)
--- NOTE | 2016-09-04 13:40 | CR ---
Clinical history: 56-year-old with wheezing and shortness of breath. Interpretation: Coarse accentuation of the perihilar lung markings consistent with bronchitis and... Subtle asymmetr ic new right suprahilar nodular-like density when compared to [address] sca n chest with IV contrast (particularly if patient is a smoker). Normal cardiac silhouette without cephalization of flow or signs of alveolar edema. No other parenchymal lung nodule/mass lesion. No focal lobar pneumonia or atelectasis/collapse. CONCLUSION: Bronchitis and subtle right suprahilar nodular or pneumonitis (see above).
[2016-09-04] MEDS: Ondansetron 4 MG Tab.DIS PO PRN ×2 (14:00→19:55)
[2016-09-04] MEDS ORDERED: methylPREDNISolone Sodium Succinate 125 MG/2 ML SDV IM ONE (15:08)
[2016-09-04] MEDS: MONTELUKAST 4 MG PO SCH ×2 (18:49→18:50)
[2016-09-04] MEDS ORDERED: Ketorolac 30 MG/ML SDV IM ONE (20:10)
[2016-09-04] MEDS: Doxycycline 100 MG Cap PO SCH (20:34)
[2016-09-04] MEDS: QUEtiapine 100 MG Tab PO SCH (20:34)
[2016-09-04] MEDS: risperiDONE 1 MG Tab PO SCH (20:35)
--- NOTE | 2016-09-04 23:54 | PCM.PN ---
[id number]. had nausea this afternoon but no vomiting. it was reported that she was able to ambulate from bathroom to bed on her own. tolerating meals , denies any pain. has been having headache and has gotted doses of tylenol for this. Functional Status: Reports: pain controlled, tolerating diet - Patient Data Vitals - most recent: Last Vital Signs Temp 35.7 C 09/04/16 22:29 Pulse 93 09/04/16 22:29 Resp 20 09/04/16 22:29 BP 114/82 09/04/16 22:29 Pulse Ox 99 09/04/16 22:29 Weight - most recent: 92.986 kg I&O - last 24 hours: Intake & Output 09/04/16 09/04/16 09/05/16 14:59 22:59 06:59 Intake Total 1370 640 Output Total 1300 1450 Balance 70 -810 Lab Results last 24 hrs: Laboratory Results - last 24 hr 09/04/16 09/04/16 Range/Units 06:04 06:04 WBC 5.7 (5.0-10.0) 10^3/uL RBC 3.16 L (4.2-5.4) 10^6/uL Hgb 10.1 L (12.0-16.0) g/dL Hct 30.8 L (37.0-47.0) % MCV 97.5 (80-100) fL MCH 32.0 (27.0-34.0) pg MCHC 32.8 L (33.0-35.0) g/dL Plt Count 247 (150-450) 10^3/uL Neut % (Auto) 44.8 (42.2-75.2) % Lymph % (Auto) 37.2 (20.5-50.1) % [place] % (Auto) 9.4 H (2-8) % Eos % (Auto) 7.9 H (1.0-3.0) % Baso % (Auto) 0.7 (0.0-1.0) % Sodium 140 (135-145) mmol/L Potassium 4.0 (3.6-5.0) mmol/L Chloride 110 (101-111) mmol/L Carbon Dioxide 25.0 (21.0-31.0) mmol/L Anion Gap 9.0 BUN 8 (7-18) mg/dL Creatinine 0.7 (0.6-1.3) mg/dL Est Cr Clr Drug Dosing 92.68 mL/min Estimated GFR (MDRD) > 60 Glucose 73 L (74-105) mg/dL Calcium 7.8 L (8.4-10.2) mg/dl Creatine Kinase 171 (26-174) IU/L Phenytoin 19.2 (10-20) ug/dL Med Orders - Current: Current Medications Acetaminophen (Tylenol) 650 mg PO Q4H PRN PRN Reason: Pain (mild 1-3 )/fever Last Admin: 09/04/16 18:13 Dose: 650 mg Albuterol (Proventil Hfa) 0 gm INH Q4H PRN PRN Reason: WHEEZING / SOB Albuterol/Ipratropium (Duoneb 3.0-0.5 Mg/3 Ml) 3 ml NEB Q6HRRT [facility] Last Admin: 09/04/16 18:12 Dose: 3 ml Alprazolam (Xanax) 2 mg PO TID [facility] Last Admin: 09/04/16 20:36 Dose: 2 mg Benzocaine/Menthol (Cepacol Sore Throat) 1 lozenge MUCMEM Q3H PRN PRN Reason: Cough Last Admin: 09/04/16 10:22 Dose: 1 lozenge Docusate Sodium (Colace) 100 mg PO DAILY PRN PRN Reason: Constipation Doxycycline Hyclate (Vibramycin) 100 mg PO BID [facility] Last Admin: 09/04/16 20:34 Dose: 100 mg Enoxaparin Sodium (Lovenox) 40 mg SUBCUT DAILY [facility] Last Admin: 09/04/16 10:23 Dose: 40 mg Gabapentin (Neurontin) 600 mg PO TID [facility] Last Admin: 09/04/16 20:35 Dose: 600 mg Metoclopramide HCl (Reglan) 5 mg IVPUSH Q6H PRN PRN Reason: Nausea Last Admin: 09/04/16 05:55 Dose: 5 mg Mometasone Furoate/Formoterol Fumar (Dulera 100-5 Mcg) 2 puff IH BID [facility] Last Admin: 09/04/16 20:33 Dose: 2 puff Ondansetron HCl (Zofran) 4 mg IV Q4H PRN PRN Reason: Nausea/Vomiting Last Admin: 09/04/16 00:47 Dose: 4 mg Ondansetron HCl (Zofran Odt) 4 mg PO Q6H PRN PRN Reason: Nausea Last Admin: 09/04/16 19:55 Dose: 4 mg Pantoprazole Sodium (Protonix) 40 mg PO ACBREAKFAST ROGELIO Last Admin: 09/04/16 05:56 Dose: 40 mg Prednisone (Prednisone) 40 mg PO WITHBREAKFAST ROGELIO Quetiapine Fumarate (Seroquel) 400 mg PO BEDTIME ROGELIO Last Admin: 09/04/16 20:34 Dose: 400 mg Risperidone (Risperidal) 1 mg PO BEDTIME ROGELIO Last Admin: 09/04/16 20:35 Dose: 1 mg Sertraline HCl (Zoloft) 200 mg PO DAILY ROGELIO Last Admin: 09/04/16 10:22 Dose: 200 mg Sodium Chloride (Saline Flush) 10 ml FLUSH ASDIRECTED PRN PRN Reason: Keep Vein Open Last Admin: 09/01/16 18:47 Dose: 10 ml Zolpidem Tartrate (Ambien) 10 mg PO BEDTIME PRN PRN Reason: Insomnia Last Admin: 09/03/16 20:06 Dose: 10 mg Discontinued Medications Hydrocodone Bitart/Acetaminophen ([place] 325-10 Mg) 1 tab PO ONETIME ONE Stop: 09/01/16 18:05 Last Admin: 09/01/16 18:46 Dose: 1 tab Albuterol/Ipratropium (Duoneb 3.0-0.5 Mg/3 Ml) 3 ml NEB Q4HRRT PRN PRN Reason: Wheezing Last Admin: 09/02/16 18:22 Dose: 3 ml Calcium Gluconate (Calcium Gluconate) 1 gm IVPUSH ONETIME ONE Stop: 09/02/16 07:56 Last Admin: 09/02/16 08:51 Dose: 1 gm Furosemide (Lasix) 20 mg IVPUSH ONETIME ONE Stop: 09/02/16 10:34 Last Admin: 09/02/16 11:34 Dose: 20 mg Furosemide (Lasix) 20 mg IVPUSH NOW ONE Stop: 09/02/16 16:05 Last Admin: 09/02/16 17:31 Dose: 20 mg Sodium Chloride (Normal Saline) 1,000 mls @ 999 mls/hr IV .BOLUS ONE Stop: 09/01/16 18:46 Last Infusion: 09/02/16 00:14 Dose: Infused Sodium Chloride (Normal Saline) 1,000 mls @ 200 mls/hr IV ASDIRECTED [facility] Last Admin: 09/03/16 10:25 Dose: 200 mls/hr Ibuprofen (Motrin) 400 mg PO ONETIME ONE Stop: 09/02/16 00:11 Last Admin: 09/02/16 00:10 Dose: 400 mg Ibuprofen (Motrin) 600 mg PO Q8H PRN PRN Reason: Headache Stop: 09/04/16 02:44 Last Admin: 09/04/16 04:15 Dose: 600 mg Ketorolac Tromethamine (Toradol) 30 mg IM ONETIME ONE Stop: 09/04/16 20:11 Last Admin: 09/04/16 20:31 Dose: 30 mg Methylprednisolone Sodium Succinate (Solu-Medrol) 125 mg IM ONETIME ONE Stop: 09/04/16 15:09 Last Admin: 09/04/16 17:00 Dose: 125 mg Montelukast [ (Singulair] 4mg) 4 mg PO DAILY [facility] Last Admin: 09/04/16 18:50 Dose: Not Given Oxycodone/Acetaminophen (Percocet 325-5 Mg) 1 tab PO ONETIME ONE Stop: 09/02/16 00:01 Last Admin: 09/02/16 01:20 Dose: Not Given Potassium Chloride (Klor-Con 10) 20 meq PO ONETIME ONE Stop: 09/03/16 10:01 Last Admin: 09/03/16 10:22 Dose: 20 meq Prednisone (Prednisone) 40 mg PO ONETIME ONE Stop: 09/05/16 11:06 Sertraline HCl (Zoloft) 200 mg PO BEDTIME [facility] Last Admin: 09/01/16 21:47 Dose: Not Given - Exam General: alert, oriented Lungs: Wheezing Abdomen: bowel sounds present, soft, no tenderness - Problem List Review Problem List Initiated/Reviewed/Updated: Yes - My Orders Last 24 Hours: My Active Orders 09/04/16 12:17 Ondansetron [Zofran ODT] 4 mg PO Q6H PRN 09/04/16 14:00 Discontinue Saline Lock [Peripheral IV Discontinue] [OM.PC] Routine 09/04/16 21:00 Doxycycline [Vibramycin] 100 mg PO BID 09/05/16 08:00 predniSONE 40 mg PO WITHBREAKFAST - Plan Plan:: Bronchitis with the persistent wheezing, CXR was done which showed bronchitis patient is saturating well given solumedrol IM and was followed by Prednisone DOxycycline twice a day started as well continue with duonebs Dilantin Toxicity: T he pt has history of Seizere Disorder and on Dilantin -She presented with slurred speech and B/L LE weakness. speech is normal today -She did not receive any activated charcoalin ED due to unknown duration - levels normal now - reinitiate dilantin once persistently within normal range - family member has verbalized to help with medication administration at home like providing a pill box Nausea : This is also likely from Dilantin toxicity -IV got pulled out - started on ZOfran PO Headache: Possibly from the Dilantin toxicity -Tylenol p.r.n. -has tolerated Ibuprofen memory loss needs formal evaluation might be the cause of the dilantin toxicity ensure assistance at home saloni with meds weakness: This is also related to Dialntin toxicity PT evaluation and treatment History of Seizure Disorder: no recurrence Fall at home Possibly from the dilantin toxicity management as above Left shoulder pain From fall left shoulder no fracture; may need physical therapy Right knee pain, from fall no fracture GI prophylaxis: Start Protonix 40 mg PO daily DVT prophylaxis: Start Levonex Code Status: Full Code
[2016-09-05] MEDS: Albuterol/Ipratropium 3.0-0.5 MG/3 ML Neb Soln NEB SCH ×3 (00:50→13:28)
[2016-09-05] MEDS: Acetaminophen 325 MG Tab PO PRN ×2 (02:22→08:18)
[2016-09-05] MEDS: Zolpidem 5 MG Tab PO PRN (02:24)
[2016-09-05] MEDS: Pantoprazole 40 MG Tab.CR PO SCH (05:56)
[2016-09-05] MEDS ORDERED: predniSONE 20 MG Tab PO SCH (08:00)
[2016-09-05] MEDS: Enoxaparin 40 MG/0.4 ML Syringe SUBCUT SCH (08:16)
[2016-09-05] MEDS: ALPRAZolam 0.5 MG Tab PO SCH ×2 (08:17→14:32)
[2016-09-05] MEDS: Sertraline 50 MG Tab PO SCH (08:17)
[2016-09-05] MEDS: Doxycycline 100 MG Cap PO SCH (08:19)
[2016-09-05] MEDS: Gabapentin 300 MG Cap PO SCH ×2 (08:19→14:31)
[2016-09-05] MEDS: Formoterol/Mometasone 100-5 MCG 8.8 GM Inhaler IH SCH (08:21)
[2016-09-05] MEDS ORDERED: predniSONE 20 MG Tab PO ONE (11:05)
[2016-09-05 11:10] VITALS: BP 106/64
--- NOTE | 2016-09-05 12:58 | DISCH ---
FINAL DIAGNOSES: 1. Bronchitis. 2. Bilateral leg weakness secondary to Dilantin toxicity. 3. History of fall. 4. Abnormal chest x-ray. 5. History of seizure disorder. BRIEF HISTORY AND PHYSICAL EXAMINATION: The patient is a 56-year-old female, who was admitted on September 01, 2016 because of nausea, unsteadiness, and bilateral leg weakness. She has a history of seizures, has been on Dilantin for several years and while on the medication, she did not have any episodes of seizure. She is a light smoker, but is being exposed to secondhand smoking at home. Initial complaints include slurred speech of bilateral lower extremity, nausea, and headache. On admission, vital signs showed blood pressure 123/73, heart rate of 72 beats per minute, respirations 16 breaths per minute, oxygen saturation 98%, and temperature 36.6. Documented physical exam showed no wheezing. Regular rate and rhythm. Neurologic: Alert and oriented x3 and intact memory. Workup done during the hospital admission showed initial CBC, WBC 6.4, hemoglobin 11.8, platelets 251, LDH 199, CK 505, glucose 118, GFR more than 60, and creatinine 0.7. Initial phenytoin is 32.5 and alcohol less than 5. Subsequent phenytoin showed 28.7, 28.8, 25.5, 27.8, 25.0, 22.2, 19.2 and the latest is 15.2. The latest CBC showed hemoglobin of 10.1. Discharge BMP showed sodium 142, potassium 4.0, anion gap 9.2, creatinine 0.7, total calcium 7.8, and CK 171. Other workup done in the hospital showed a CT scan showing no acute intracranial hemorrhage.FINDINGS: Consistent of chronic white matter ischemic changes. Shoulder and knee x-ray did not show any fracture. BRIEF HOSPITAL COURSE: The patient was admitted under medical-surgical bed. Given the elevated Dilantin levels, she was hydrated. Dilantin was on hold during the hospital stay. BMP was monitored regularly. For the nausea, she was given IV Reglan and Zofran IV. For the unsteadiness and weakness, Physical Therapy was consulted. History of seizure disorder. No recurrence in the hospital. Subsequently, phenytoin level started to trend down. Her nausea also started to get better. She was able to walk or ambulate within her room and was advised to use a walker given the bilateral leg weakness and unsteadiness. Apparently, the patient has problems with taking her pills. She cannot recall if she has taken an extra dose of her phenytoin and this might have led to her elevated level. At some point, she was noted to be wheezing and coughing. Chest x-ray showed bronchitis and abnormality on the right upper lobe. She was started on doxycycline and prednisone. Subsequently, she felt better. DISCHARGE EXAMINATION: Vital Signs: Showed blood pressure 106/64, heart rate of 84 beats per minute, respirations 16 breaths per minute, oxygen saturation 96%, temperature 36.1. General Appearance: Awake, in distress. Chest: Symmetric chest expansion. Lungs: Bilateral air entry. CVS: Regular rate and rhythm. Abdomen: Soft, normoactive bowel sounds. Neurologic: No focal deficits. No tremor. DISCHARGE INSTRUCTIONS: The patient is stable to be discharged home. Advised to take pills properly with the aid of a reminder to self and pill box. She was also advised to do physical therapy for her left shoulder pain. She was advised to follow up with provider within 1 week from discharge. She was educated regarding the symptoms of Dilantin toxicity. She was advised to obtain the walker. This was prescribed at [facility]. She will need this for lifetime. To come back to the emergency room with emergent health concerns. ANALISA /[id number] RAYMOND
== END 2016-09-05 14:49 | disposition home or self-care (01) | DRG 918 ==
LOC: DL.ED 16:35 → DL.MS 18:46 → OBSVTOIN 19:36
PROVIDERS: ADMIT Internal Medicine Nephrology; ATTEND Internal Medicine Nephrology
DX: T42.0X1A Poisoning by hydantoin derivatives, accidental (unintentional), initial encounter (principal); Y92.009 Unspecified place in unspecified non-institutional (private) residence as the place of occurrence of the external cause; R26.81 Unsteadiness on feet; R47.81 Slurred speech; G40.909 Epilepsy, unspecified, not intractable, without status epilepticus; J44.9 Chronic obstructive pulmonary disease, unspecified; F32.9 Major depressive disorder, single episode, unspecified; F41.9 Anxiety disorder, unspecified; R11.0 Nausea; R53.1 Weakness; R51 Headache; R41.3 Other amnesia; E83.51 Hypocalcemia; E87.6 Hypokalemia; W19.XXXA Unspecified fall, initial encounter; Z91.81 History of falling; M25.512 Pain in left shoulder; M25.561 Pain in right knee; Z79.52 Long term (current) use of systemic steroids; Z88.5 Allergy status to narcotic agent; Z88.8 Allergy status to other drugs, medicaments and biological substances; Z72.0 Tobacco use; Z77.22 Contact with and (suspected) exposure to environmental tobacco smoke (acute) (chronic)
CPT/HCPCS: 36415; 51798; 70450; 71020; 73030-LT; 73562-RT; 80048; 80053; 80185; 80305; 81001; 82550; 83615; 85025; 94640; 96360; 97116-GP; 97161-GP; 99285; A9270-GY; G0480; J0610; J1650; J1885; J1940; J2405; J2765; J2930; J7030; J7050

== ENCOUNTER 2017-01-22 17:37 | Emergency (ER) | payer MEDICAID, OTHER ==
[2017-01-22 17:44] VITALS: BP 118/75
[2017-01-22] MEDS ORDERED: Ondansetron 4 MG/2 ML SDV IV ONE (17:59)
[2017-01-22] MEDS ORDERED: Morphine 4 MG/ML Syringe IVPUSH ONE ×2 (17:59→18:40)
[2017-01-22] MEDS ORDERED: Sodium Chloride 0.9% 10 ML Syringe FLUSH PRN (17:59)
--- NOTE | 2017-01-22 18:16 | EDM.PDOC ---
ED HPI GENERAL MEDICAL PROBLEM - General Chief Complaint: Lower Extremity Injury/Pain Stated Complaint: BERNIE SERVIN, GENERAL Time Seen by Provider: 01/22/17 18:00 Source of Information: Reports: Patient History Limitations: Reports: No Limitations - History of Present Illness INITIAL COMMENTS - FREE TEXT/NARRATIVE: 56 yo female presents s/p same level fall with bilateral knee pain. States that she tripped on her driveway and fell forewards. Swelling noted to bilateral knee with hematoma on left knee, abrasions to knees bilaterally. Pt denies LOC. no other complaints of pain currently. Onset: Today, Sudden Location: Reports: Lower Extremity, Left, Lower Extremity, Right Quality: Reports: Ache, Throbbing Severity: Severe Improves with: Reports: None Worsens with: Reports: Movement Associated Symptoms: Reports: No Other Symptoms Bilateral Knee Pain Score (Numeric/FACES): 10 - Related Data Allergies Allergy/AdvReac Type Severity Reaction Status Date / Time codeine Allergy Nausea Verified 08/03/15 18:40 fentanyl Allergy Nausea Verified 01/22/17 17:39 naproxen [From Naprosyn] Allergy Hives Verified 08/03/15 18:40 Home Meds: Home Meds ALPRAZolam [Xanax] 2 mg PO TID 05/22/13 [History] QUEtiapine [SEROquel] 600 mg PO BEDTIME 05/22/13 [History] Sertraline [Zoloft] 200 mg PO DAILY 05/22/13 [History] Formoterol/Mometasone [Dulera 100 MCG/5 MCG] 2 puff IH BID 06/14/13 [History] Gabapentin [Neurontin] 600 mg PO TID 06/14/13 [History] Albuterol [Ventolin HFA] 2 puff INH Q4H PRN 09/16/13 [History] Ibuprofen 800 mg PO Q8H PRN 09/01/16 [History] Montelukast [Singulair] 4 mg PO DAILY 09/01/16 [History] Doxycycline Calcium [IMW: Doxycycline] 100 mg PO BID #14 capsule 09/05/16 [Rx] Phenytoin Sodium Extended [Dilantin] 200 mg PO BID 09/05/16 [History] Prednisone [IJD: predniSONE] 10 mg PO ASDIRECTED 16 Days tablet 09/05/16 [Rx] Past Medical History HEENT History: Reports: None Respiratory History: Reports: COPD Musculoskeletal History: Reports: Fracture Neurological History: Reports: Seizure Other Neuro History: April 2015 Psychiatric History: Reports: Anxiety, Depression - Past Surgical History Musculoskeletal Surgical History: Reports: Other (See Below) Social & Family History - Family History Family Medical History: Noncontributory - Tobacco Use Smoking Status *Q: Never Smoker Years of Tobacco use: 1 Packs/Tins Daily: 0.1 Used Tobacco, but Quit: No Second Hand Smoke Exposure: Yes - Caffeine Use Caffeine Use: Reports: Coffee, Energy Drinks, Soda, Tea - Alcohol Use Days Per Week of Alcohol Use: 0 - Recreational Drug Use Recreational Drug Use: No Drug Use in Last 12 Months: Yes Recreational Drug Type: Reports: Marijuana/Hashish Recreational Drug Use Frequency: Rarely - Living Situation & Occupation Living situation: Reports: Other Review of Systems - Review of Systems Review Of Systems: ROS reveals no pertinent complaints other than HPI. ED EXAM, GENERAL - Physical Exam Exam: See Below Exam Limited By: No Limitations General Appearance: Alert, WD/WN, No Apparent Distress Eye Exam: Bilateral Eye: Normal Inspection, PERRL Neck: Normal Inspection, Supple, Non-Tender, Full Range of Motion Respiratory/Chest: No Respiratory Distress, Lungs Clear, Normal Breath Sounds, No Accessory Muscle Use, Chest Non-Tender Cardiovascular: Normal Peripheral Pulses, Regular Rate, Rhythm, No Edema, No Gallop, No JVD, No Murmur, No Rub Peripheral Pulses: 3+: Dorsalis Pedis (L), Dorsalis Pedis (R) Back Exam: Normal Inspection, Full Range of Motion, NT Extremities: Limited Range of Motion (due to pian; bilaterally) Neurological: Alert, Oriented, CN II-XII Intact, Normal Cognition, No Motor/ Sensory Deficits Skin Exam: Warm, Dry, No Rash, Ecchymosis, Erythema, Wound/Incision (abrasions bilateral knee), Other (hematoma left knee) Course - Vital Signs Last Recorded V/S: Last Vital Signs Temp 96.8 F 01/22/17 17:40 Pulse 81 01/22/17 17:40 Resp 16 01/22/17 17:40 BP 118/75 01/22/17 17:40 Pulse Ox 100 01/22/17 17:40 - Orders/Labs/Meds Orders: Active Orders 24 hr Category Date Time Status Sodium Chloride 0.9% [Saline Flush] Med 01/22/17 17:59 Active 10 ml FLUSH ASDIRECTED PRN Saline Lock Insert [OM.PC] Stat Oth 01/22/17 17:59 Ordered Medication Orders Sodium Chloride (Saline Flush) 10 ml FLUSH ASDIRECTED PRN PRN Reason: Keep Vein Open Last Admin: 01/22/17 18:08 Dose: 10 ml Meds: Medications Generic Name Dose Route Start Last Admin Trade Name Freq PRN Reason Stop Dose Admin Sodium Chloride 10 ml 01/22/17 17:59 01/22/17 18:08 Saline Flush FLUSH 10 ml ASDIRECTED PRN Administration Keep Vein Open Discontinued Medications Generic Name Dose Route Start Last Admin Trade Name Freq PRN Reason Stop Dose Admin Hydrocodone Bitart/Acetaminophen 1 tab 01/22/17 19:13 [place] 325-10 Mg PO 01/22/17 19:14 ONETIME ONE Morphine Sulfate 4 mg 01/22/17 17:59 01/22/17 18:10 Morphine IVPUSH 01/22/17 18:00 4 mg ONETIME ONE Administration Morphine Sulfate 4 mg 01/22/17 18:40 01/22/17 18:50 Morphine IVPUSH 01/22/17 18:41 4 mg ONETIME ONE Administration Ondansetron HCl 4 mg 01/22/17 17:59 01/22/17 18:08 Zofran IV 01/22/17 18:00 4 mg ONETIME ONE Administration Departure - Departure Time of Disposition: 19:15 Disposition: Home, Self-Care 01 Condition: Good Clinical Impression: Fall Qualifiers: Encounter type: initial encounter Qualified Code(s): W19.XXXA - Unspecified fall, initial encounter Knee contusion Qualifiers: Encounter type: initial encounter Laterality: unspecified laterality Qualified Code(s): S80.00XA - Contusion of unspecified knee, initial encounter - Discharge Information Instructions: Knee Sprain, [id number], Crutch Use, [id number], Cast or Splint Care, [id number], Knee Pain Forms: ED Department Discharge Additional Instructions: Keep wound clean and dry. Follow up with your PCP or clinic in 1 week if no improvement. return for worsening symptoms. - My Orders Last 24 Hours: My Active Orders 01/22/17 17:59 Sodium Chloride 0.9% [Saline Flush] 10 ml FLUSH ASDIRECTED PRN Saline Lock Insert [OM.PC] Stat - Assessment/Plan Last 24 Hours: My Active Orders 01/22/17 17:59 Sodium Chloride 0.9% [Saline Flush] 10 ml FLUSH ASDIRECTED PRN Saline Lock Insert [OM.PC] Stat
[2017-01-22] MEDS ORDERED: Acetaminophen/HYDROcodone 325-10 MG Tab PO ONE (19:13)
== END 2017-01-22 19:48 | disposition home or self-care (01) ==
LOC: DL.ED 17:37
DX: S80.02XA Contusion of left knee, initial encounter (principal); S80.211A Abrasion, right knee, initial encounter; J44.9 Chronic obstructive pulmonary disease, unspecified; F41.9 Anxiety disorder, unspecified; F32.9 Major depressive disorder, single episode, unspecified; Z88.8 Allergy status to other drugs, medicaments and biological substances; Z88.5 Allergy status to narcotic agent; Z79.899 Other long term (current) drug therapy; W18.30XA Fall on same level, unspecified, initial encounter
CPT/HCPCS: 73560; 73590; 99283; A9270; J2270; J2405; J7050

== ENCOUNTER 2017-01-27 10:01 | Emergency (ER) | payer MEDICAID, OTHER ==
[2017-01-27 10:21] VITALS: BP 114/76
[2017-01-27] MEDS ORDERED: Ketorolac 30 MG/ML SDV IM ONE (10:37)
[2017-01-27] MEDS ORDERED: Acetaminophen/HYDROcodone 325-10 MG Tab PO ONE (10:40)
--- NOTE | 2017-01-29 15:43 | EDM.PDOC ---
Scribed by Marissa Obrien 01/27/17 1050 for Hal Lundberg MD ED HPI GENERAL MEDICAL PROBLEM - General Chief Complaint: Lower Extremity Injury/Pain Stated Complaint: [id number] LEFT LEG FELL AND SORE Time Seen by Provider: 01/27/17 10:07 Source of Information: Reports: Patient, RN, RN Notes Reviewed History Limitations: Reports: No Limitations - History of Present Illness INITIAL COMMENTS - FREE TEXT/NARRATIVE: Complaint of left knee pain sustained from a fall on 01/22/17. Patient was seen in ER after the fall and had negative x-rays of bilateral knees. Patient reports no relief with Tramadol, Tylenol or gabapentin. Rates pain 9/10. Nothing makes it better. Pain is worse with movement and weight bearing. Location: Reports: Lower Extremity, Left Quality: Reports: Ache Severity: Severe Improves with: Reports: None Worsens with: Reports: None Associated Symptoms: Reports: No Other Symptoms Left Knee Pain Score (Numeric/FACES): 9 - Related Data Allergies Allergy/AdvReac Type Severity Reaction Status Date / Time codeine Allergy Nausea Verified 08/03/15 18:40 fentanyl Allergy Nausea Verified 01/22/17 17:39 naproxen [From Naprosyn] Allergy Hives Verified 08/03/15 18:40 Home Meds: Home Meds ALPRAZolam [Xanax] 2 mg PO TID 05/22/13 [History] QUEtiapine [SEROquel] 600 mg PO BEDTIME 05/22/13 [History] Sertraline [Zoloft] 200 mg PO DAILY 05/22/13 [History] Formoterol/Mometasone [Dulera 100 MCG/5 MCG] 2 puff IH BID 06/14/13 [History] Gabapentin [Neurontin] 600 mg PO TID 06/14/13 [History] Albuterol [Ventolin HFA] 2 puff INH Q4H PRN 09/16/13 [History] Ibuprofen 800 mg PO Q8H PRN 09/01/16 [History] Montelukast [Singulair] 4 mg PO DAILY 09/01/16 [History] Doxycycline Calcium [IMW: Doxycycline] 100 mg PO BID #14 capsule 09/05/16 [Rx] Phenytoin Sodium Extended [Dilantin] 200 mg PO BID 09/05/16 [History] Prednisone [IJD: predniSONE] 10 mg PO ASDIRECTED 16 Days tablet 09/05/16 [Rx] Past Medical History HEENT History: Reports: None Respiratory History: Reports: COPD Musculoskeletal History: Reports: Fracture Neurological History: Reports: Seizure Other Neuro History: April 2015 Psychiatric History: Reports: Anxiety, Depression - Past Surgical History Musculoskeletal Surgical History: Reports: Other (See Below) Social & Family History - Family History Family Medical History: Noncontributory - Tobacco Use Smoking Status *Q: Never Smoker Years of Tobacco use: 1 Packs/Tins Daily: 0.1 Used Tobacco, but Quit: No Second Hand Smoke Exposure: Yes - Caffeine Use Caffeine Use: Reports: Coffee, Energy Drinks, Soda, Tea - Alcohol Use Days Per Week of Alcohol Use: 0 - Recreational Drug Use Recreational Drug Use: No Drug Use in Last 12 Months: Yes Recreational Drug Type: Reports: Marijuana/Hashish Recreational Drug Use Frequency: Rarely - Living Situation & Occupation Living situation: Reports: Other Review of Systems - Review of Systems Review Of Systems: ROS reveals no pertinent complaints other than HPI. ED EXAM, GENERAL - Physical Exam Exam: See Below Exam Limited By: No Limitations Respiratory/Chest: No Respiratory Distress Cardiovascular: Normal Peripheral Pulses Neurological: Alert, Oriented, CN II-XII Intact, Normal Cognition, No Motor/ Sensory Deficits, Other (Contusion and hematoma resolving consistent with injury on 01/22/17 at left lower leg from knee to ankle on medial anterior and lateral surfaces with mild edema. ) Psychiatric: Normal Affect, Normal Mood Course - Vital Signs Last Recorded V/S: Last Vital Signs Temp 36.1 C 01/27/17 10:17 Pulse 84 01/27/17 10:17 Resp 16 01/27/17 10:17 BP 114/76 01/27/17 10:17 Pulse Ox 99 01/27/17 10:17 - Orders/Labs/Meds Meds: Medications Discontinued Medications Generic Name Dose Route Start Last Admin Trade Name Nigel PRN Reason Stop Dose Admin Hydrocodone Bitart/Acetaminophen 1 tab 01/27/17 10:40 01/27/17 10:47 [place] 325-10 Mg PO 01/27/17 10:41 1 tab ONETIME ONE Administration Ketorolac Tromethamine 30 mg 01/27/17 10:37 01/27/17 10:43 Toradol IM 01/27/17 10:38 30 mg ONETIME ONE Administration - Radiology Interpretation Free Text/Narrative:: I reviewed the x-rays from 01/22/17. Departure - Departure Time of Disposition: 10:41 Disposition: Home, Self-Care 01 Condition: Good Clinical Impression: Contusion of left lower extremity Qualifiers: Encounter type: initial encounter Qualified Code(s): S80.12XA - Contusion of left lower leg, initial encounter Hematoma of left lower extremity Qualifiers: Encounter type: initial encounter Qualified Code(s): S80.12XA - Contusion of left lower leg, initial encounter - Discharge Information Instructions: Contusion, [id number], Hematoma, Ulef-[id number] Referrals: PCP,None [Primary Care Provider] - Forms: ED Department Discharge Additional Instructions: RX: Lidocaine 5% ointment. RX: Diclofenac DR 75mg. Use crutches as needed for 5 to 7 days. Use Jeison wrap for tubagrip compression to left lower extremity for 5 to 7 days. Follow up in clinic this week for recheck. I have read and agree with the documentation that has been completed regarding this visit. By signing this record, I attest that the documentation was completed in my physical presence and is an accurate record of the encounter.
== END 2017-01-27 10:55 | disposition home or self-care (01) ==
LOC: DL.ED 10:01
DX: S80.12XA Contusion of left lower leg, initial encounter (principal); J44.9 Chronic obstructive pulmonary disease, unspecified; F32.9 Major depressive disorder, single episode, unspecified; Z79.899 Other long term (current) drug therapy; Z88.5 Allergy status to narcotic agent; Z88.1 Allergy status to other antibiotic agents; Z88.8 Allergy status to other drugs, medicaments and biological substances; W19.XXXA Unspecified fall, initial encounter
CPT/HCPCS: 96372; 99283; A9270; J1885

== ENCOUNTER 2017-01-30 22:34 | Emergency (ER) | payer MEDICAID, OTHER ==
[2017-01-30 22:42] VITALS: BP 114/82
[2017-01-30] MEDS ORDERED: Acetaminophen/HYDROcodone 325-10 MG Tab PO ONE (23:37)
--- NOTE | 2017-01-30 23:43 | EDM.PDOC ---
ED HPI GENERAL MEDICAL PROBLEM - General Chief Complaint: Lower Extremity Injury/Pain Stated Complaint: KNEE PAIN Time Seen by Provider: 01/30/17 23:38 Source of Information: Reports: Patient History Limitations: Reports: No Limitations - History of Present Illness INITIAL COMMENTS - FREE TEXT/NARRATIVE: This 56 yo female patient reports to the ED with continued knee pain. The patient reports she fell on 01/22/17 and was seen in the ED. The patient reports she attempted to get into a primary care facility, but was unable to get an appointment until February. The patient reports there was nothing broken, but she has continued to bruise. Review of the patient's pharmacy record demonstrates that she filled Tramadol on 01/25/17. The patient initially reported she only took Tylenol and ibuprofen. Once addressed with her pharmacy record, the patient admitted to filling the prescription for Tramadol, but had no pain relief. Onset Date: 01/22/17 Duration: Constant Location: Reports: Back, Lower Extremity, Right Quality: Reports: Ache, Dull Severity: Moderate Improves with: Reports: None Worsens with: Reports: None Associated Symptoms: Reports: No Other Symptoms Treatments [employer]ILD[employer]: Reports: Acetaminophen, NSAIDS Left Knee Pain Score (Numeric/FACES): 10 - Related Data Allergies Allergy/AdvReac Type Severity Reaction Status Date / Time codeine Allergy Nausea Verified 01/30/17 22:42 fentanyl Allergy Nausea Verified 01/30/17 22:42 naproxen [From Naprosyn] Allergy Hives Verified 01/30/17 22:42 Home Meds: Home Meds QUEtiapine [SEROquel] 600 mg PO BEDTIME 05/22/13 [History] Sertraline [Zoloft] 200 mg PO DAILY 05/22/13 [History] Gabapentin [Neurontin] 600 mg PO TID 06/14/13 [History] Albuterol [Ventolin HFA] 2 puff INH Q4H PRN 09/16/13 [History] Ibuprofen 600 mg PO Q8H PRN 09/01/16 [History] Montelukast [Singulair] 4 mg PO DAILY 09/01/16 [History] Phenytoin Sodium Extended [Dilantin] 200 mg PO BID 09/05/16 [History] Fluticasone/Salmeterol [Advair Diskus 500-50] 1 puff INH DAILY 01/30/17 [History ] Past Medical History HEENT History: Reports: None Respiratory History: Reports: COPD Musculoskeletal History: Reports: Fracture Neurological History: Reports: Seizure Other Neuro History: April 2015 Psychiatric History: Reports: Anxiety, Depression - Past Surgical History GI Surgical History: Reports: Appendectomy, Cholecystectomy Social & Family History - Family History Family Medical History: Noncontributory - Tobacco Use Smoking Status *Q: Current Every Day Smoker Years of Tobacco use: 4 Packs/Tins Daily: 0.1 Used Tobacco, but Quit: No Second Hand Smoke Exposure: Yes - Caffeine Use Caffeine Use: Reports: Coffee, Energy Drinks, Soda, Tea - Alcohol Use Days Per Week of Alcohol Use: 0 - Recreational Drug Use Recreational Drug Use: No Drug Use in Last 12 Months: Yes Recreational Drug Type: Reports: Marijuana/Hashish Recreational Drug Use Frequency: Rarely - Living Situation & Occupation Living situation: Reports: Other Review of Systems - Review of Systems Review Of Systems: ROS reveals no pertinent complaints other than HPI. ED EXAM, GENERAL - Physical Exam Exam: See Below Exam Limited By: No Limitations General Appearance: Alert, WD/WN, No Apparent Distress Eye Exam: Bilateral Eye: EOMI, Normal Inspection, PERRL Ears: Normal External Exam, Normal Canal, Hearing Grossly Normal, Normal TMs Nose: Normal Inspection, Normal Mucosa, No Blood Throat/Mouth: Normal Inspection, Normal Lips, Normal Teeth, Normal Gums, Normal Oropharynx, Normal Voice, No Airway Compromise Head: Atraumatic, Normocephalic Neck: Normal Inspection, Supple, Non-Tender, Full Range of Motion Respiratory/Chest: No Respiratory Distress, Lungs Clear, Normal Breath Sounds, No Accessory Muscle Use, Chest Non-Tender Cardiovascular: Normal Peripheral Pulses, Regular Rate, Rhythm, No Edema, No Gallop, No JVD, No Murmur, No Rub GI/Abdominal: Normal Bowel Sounds, Soft, Non-Tender, No Organomegaly, No Distention, No Abnormal Bruit, No Mass (Female) Exam: Deferred Rectal (Female) Exam: Deferred Back Exam: Normal Inspection, Full Range of Motion, NT Extremities: Other (bruising bilateral knees) Neurological: Alert, Oriented, CN II-XII Intact, Normal Cognition Psychiatric: Normal Affect, Normal Mood Skin Exam: Warm, Dry, Intact, Normal Color, No Rash Lymphatic: No Adenopathy Course - Vital Signs Last Recorded V/S: Last Vital Signs Temp 36.1 C 01/30/17 22:37 Pulse 89 01/30/17 22:37 Resp 18 01/30/17 22:37 BP 114/82 01/30/17 22:37 Pulse Ox 98 01/30/17 22:37 - Orders/Labs/Meds Orders: Active Orders 24 hr Category Date Time Status Acetaminophen/HYDROcodone [Dunnell 325-10 MG] Med 01/30/17 23:37 Once 1 tab PO ONETIME ONE Departure - Departure Time of Disposition: 23:42 Disposition: Home, Self-Care 01 Condition: Fair Clinical Impression: Contusion of knee Qualifiers: Encounter type: initial encounter Laterality: unspecified laterality Qualified Code(s): S80.00XA - Contusion of unspecified knee, initial encounter - Discharge Information Instructions: Contusion, [id number] Care Plan Goals: The patient was advised of the examination results during the visit. The patient was given 1 oral dose of Dunnell (10/325) while in the ED. The patient was advised to follow-up with her primary care facility for continued evaluation and management. - My Orders Last 24 Hours: My Active Orders 01/30/17 23:37 Acetaminophen/HYDROcodone [Dunnell 325-10 MG] 1 tab PO ONETIME ONE - Assessment/Plan Last 24 Hours: My Active Orders 01/30/17 23:37 Acetaminophen/HYDROcodone [Dunnell 325-10 MG] 1 tab PO ONETIME ONE
== END 2017-01-30 23:47 | disposition home or self-care (01) ==
LOC: DL.ED 22:34
DX: S80.02XA Contusion of left knee, initial encounter (principal); S80.01XA Contusion of right knee, initial encounter; J44.9 Chronic obstructive pulmonary disease, unspecified; F41.9 Anxiety disorder, unspecified; F32.9 Major depressive disorder, single episode, unspecified; F17.210 Nicotine dependence, cigarettes, uncomplicated; Z90.49 Acquired absence of other specified parts of digestive tract; Z88.5 Allergy status to narcotic agent; Z88.8 Allergy status to other drugs, medicaments and biological substances; Z79.899 Other long term (current) drug therapy; W19.XXXA Unspecified fall, initial encounter
CPT/HCPCS: 99283; A9270